=== PATIENT | female | born 1945 | race Caucasian/White ===

== ENCOUNTER 2021-01-26 13:15 | Emergency (ER) | payer OTHER, MEDICARE ==
[2021-01-26 13:37] VITALS: TEMP 98.9; BMI 33.3
[2021-01-26 14:20] VITALS: BP 144/66; PULSE 77
== END 2021-01-26 14:55 | disposition home or self-care (01) ==
LOC: FER 13:15
DX: H11.32 Conjunctival hemorrhage, left eye (principal)
CPT/HCPCS: 99283-25

== ENCOUNTER 2023-01-28 11:48 | Emergency (ER) | payer MEDICARE, OTHER ==
[2023-01-28 12:08] VITALS: BP 121/42; PULSE 69; RESP 16; TEMP 97.9; BMI 36.6
[2023-01-28] MEDS ORDERED: IBUPROFEN 600 MG TABLET (FP) PO ONE ×2 (12:13→12:17)
[2023-01-28] MEDS ORDERED: ACETAMINOPHEN 500 MG TABLET (FP) PO ONE (12:13)
[2023-01-28] MEDS ORDERED: DIPHTH,PERTUSS(ACELL),TET 0.5 ML DISP.SYRIN IM ONE ×2 (12:13→12:18)
[2023-01-28] MEDS ORDERED: ACETAMINOPHEN 325 MG TABLET (FP) ONE (12:17)
== END 2023-01-28 14:08 | disposition home or self-care (01) ==
LOC: FER 11:48
PROC: 3E0234Z Introduction of Serum, Toxoid and Vaccine into Muscle, Percutaneous Approach (ICD-10-PCS; principal; 2023-01-28)
DX: S80.212A Abrasion, left knee, initial encounter (principal); M25.562 Pain in left knee; M79.652 Pain in left thigh; R22.42 Localized swelling, mass and lump, left lower limb; W01.0XXA Fall on same level from slipping, tripping and stumbling without subsequent striking against object, initial encounter; Y93.02 Activity, running
CPT/HCPCS: 73552-TC-LT-FY; 73562-TC-LT-FY; 73590-TC-LT-FY; 90471; 90715; 99283-25